=== PATIENT | male | born 1985 | race Caucasian/White ===

== ENCOUNTER 2019-09-08 16:16 | Emergency (ER) | payer OTHER ==
[~2019-09-08] VITALS: Ht 182.9 cm; Wt 123.8 kg
[2019-09-08 16:43] VITALS: Ht 182.9 cm; Wt 123.8 kg
[2019-09-08 17:19] VITALS: BP 133/71
== END 2019-09-08 17:19 | disposition home or self-care (01) ==
LOC: ED 16:16
DX: J06.9 Acute upper respiratory infection, unspecified (principal); J45.909 Unspecified asthma, uncomplicated; R03.0 Elevated blood-pressure reading, without diagnosis of hypertension; Z98.890 Other specified postprocedural states; Z88.0 Allergy status to penicillin
CPT/HCPCS: Q0162

== ENCOUNTER 2019-12-04 16:58 | Emergency (ER) | payer OTHER, SELFPAY ==
[~2019-12-04] VITALS: Ht 182.9 cm; Wt 127.0 kg
[2019-12-04 17:03] VITALS: BP 125/79; Ht 182.9 cm; Wt 127.0 kg
== END 2019-12-04 19:01 | disposition home or self-care (01) ==
LOC: ED 16:58
DX: A08.4 Viral intestinal infection, unspecified (principal); J45.909 Unspecified asthma, uncomplicated; Z20.828 Contact with and (suspected) exposure to other viral communicable diseases; Z98.890 Other specified postprocedural states; Z88.0 Allergy status to penicillin
CPT/HCPCS: 87804; Q0092; Q0162